=== PATIENT | female | born 2000 | race Two or more races ===

== ENCOUNTER 2019-07-13 01:21 | Inpatient (IN) | payer OTHER ==
[~2019-07-13] VITALS: Ht 157.5 cm; Wt 75.3 kg
== END 2019-07-15 16:50 | disposition home or self-care (01) | DRG 807 ==
LOC: OBS/DEL 01:21 → LDR 08:24 → OB/GYN 17:36
PROVIDERS: ADMIT Obstetrics & Gynecology
PROC: 10E0XZZ Delivery of Products of Conception, External Approach (ICD-10-PCS; principal; 2019-07-13)
PROC: 0HQ9XZZ Repair Perineum Skin, External Approach (ICD-10-PCS; 2019-07-13)
PROC: 3E033VJ Introduction of Other Hormone into Peripheral Vein, Percutaneous Approach (ICD-10-PCS; 2019-07-13)
PROC: 4A1HXCZ Monitoring of Products of Conception, Cardiac Rate, External Approach (ICD-10-PCS; 2019-07-13)
DX: O98.82 Other maternal infectious and parasitic diseases complicating childbirth (principal); Z37.0 Single live birth; O70.0 First degree perineal laceration during delivery; Z3A.39 39 weeks gestation of pregnancy; B95.1 Streptococcus, group B, as the cause of diseases classified elsewhere